=== PATIENT | male | born 1970 | race African-American/Black ===

== ENCOUNTER 2017-01-20 10:20 | Observation (INO) | payer OTHER ==
[2017-01-20] VITALS (33 sets, daily range): BP systolic 126–183; BP diastolic 61–109; PULSE 62–96; RESP 13–24; Ht 177.8 cm; Wt 72.2 kg
[~2017-01-20] VITALS: Ht 177.8 cm; Wt 72.2 kg
[2017-01-20] MEDS ORDERED: LOSA100T7 PO (11:15)
--- NOTE | 2017-01-20 11:42 | RADRPT ---
PROCEDURE: Chest Radiograph. CLINICAL INDICATION: Preop. Cystoscopy. TECHNIQUE: Single frontal chest radiograph. COMPARISON: None available FINDINGS: The patient is rotated. The cardiomediastinal silhouette is within normal limits. No infiltrate o r effusion is seen. The bones are intact. IMPRESSION: 1. No evidence of acute cardiopulmonary disease. RPTAT: AA .Sandip Spencer MD, MD Date Time Electronically viewed and signed by .Sandip Spencer MD, on 01/20/2017 11:41 .B/
--- NOTE | 2017-01-20 12:37 | HPN ---
Date/Time of Note Date/Time of Note DATE: 01/20/17 TIME: 12:37 Interval H&P Admission Note Pt. seen H&P reviewed: No system changes NICOLE VITALE MD January 20, 2017 12:37
[2017-01-20] MEDS ORDERED: MIDAZOLAM 1 MG/ML 2 ML INJ ONE (12:42)
[2017-01-20] MEDS ORDERED: HYDROmorphONE (0.2 MG/ML) 10ML SYG IV PRN ×2 (13:00)
[2017-01-20] MEDS ORDERED: FENTAnyl 50 MCG/ML VIAL IV PRN (13:00)
[2017-01-20] MEDS ORDERED: MEPERIDINE 25 MG INJ IV PRN (13:00)
[2017-01-20] MEDS ORDERED: DIPHENHYDRAMINE 50 MG INJ IV PRN (13:00)
[2017-01-20] MEDS ORDERED: ONDANSETRON 4 MG INJ IV PRN (13:00)
[2017-01-20] MEDS ORDERED: METHYLENE BLUE 1% 10 ML INJ ONE (13:09)
[2017-01-20] MEDS ORDERED: IOHEXOL 300MG/ML 30 ML BTL ONE (13:21)
[2017-01-20] MEDS ORDERED: IOHEXOL 300MG/ML 30 ML BTL INJ ONE (13:26)
[2017-01-20] MEDS ORDERED: ROCURONIUM 50 MG INJ ONE (14:22)
[2017-01-20] MEDS ORDERED: LIDOCAINE 2% (SDV) 5 ML INJ ONE (14:22)
[2017-01-20] MEDS ORDERED: PROPOFOL 20 ML ONE (14:22)
[2017-01-20] MEDS ORDERED: CEFAZOLIN 1 GM INJ ONE (14:25)
[2017-01-20] MEDS ORDERED: ONDANSETRON 4 MG INJ ONE (14:26)
[2017-01-20] MEDS ORDERED: CEFAZOLIN 2 GM/50 ML (PMX) 50 ML IVPB ONE (14:30)
[2017-01-20] MEDS ORDERED: HYDROCODONE/APAP (5/325) TAB PO PRN (15:00)
[2017-01-20] MEDS ORDERED: LABETALOL HCL 20MG INJ IV PRN (15:00)
--- NOTE | 2017-01-20 15:07 | OPR ---
DATE OF OPERATION: 01/20/2017 PREOPERATIVE DIAGNOSIS: Possible bladder tumor as suspected on ultrasound. POSTOPERATIVE DIAGNOSIS: Possible bladder tumor as suspected on ultrasound. Pending pathology repo rt. FINDINGS: Patient did have numerous bullous lesions in the bladder, mostly on the right side and ar ound the right ureteral orifice, also on the left side next to the left ureteral orifice and in the trigone and the bladder neck. OPERATION PERFORMED: Cystoscopy, transurethral resection of these tumors and also bilateral retrogr nunu pyelograms. TECHNIQUE: The patient was brought to the operating room. General anesthesia was given. The patie nt was given 2 grams of Ancef IV at the start of the procedure. The patient was then positioned in the lithotomy position. The genital area was prepped and draped in the usual sterile manner. A #22 Iranian cystoscope sheath was introduced under direct vision through the penile urethra all the way into the bladder and the above findings were noted; however, one cannot identify the right ureteral orifice, but after using the 70-degree lens, the orifice was covered by these bullous lesions and on ce I saw the orifice, then I did pass a Glidewire into it and got the x-ray and confirmed that is i n the ureter and the wire went up to the kidney. I did pass a 5-Iranian open-ended on it and did a r etrograde pyelogram to make sure that it is only 1 ureter on the right side that is not a duplicated system, and it showed normal collecting system. I left the open-ended there. Then I did cannulate the left ureteral orifice as well to be able to protect the orifices once I resected these tumors. On the left side, I put a sensor wire 0.035. On the right side, I put the 0.035 zip wire and then I removed the open-ended catheters. This way, I would be able to pass the resectoscope into the blad opal. Once I did that, then the patient was given 5 mL of methylene blue and I could see it coming f rom the left ureteral orifice. Then, I did introduce the 26-Iranian resectoscope into the bladder an d resected first the lesions that are away from the ureteral orifice, and then I did call the pathol zohreh. He came in and I just showed him the microscopic looking of these lesions, so he could look at it later on microscopically and have an idea to correlate it clinically. Any bullous lesion I co uld also electrocoagulate. Once I electrocoagulated, it is like a balloon, it pops up. Then I rese cted one deep into the wall of the bladder and sent it as base of bladder tumor. Once I resected th maura far away from the orifice, then I resected the areas close to the orifice, and care was taken al l the time to keep the orifices intact. In fact, the orifices were perfectly normal and intact at t he end. I removed the zip wire first on the right side. Then, I removed the sensor wire on the lef t and then I did resect more tissue toward the bladder neck and the trigone, as now the orifices wer e well visualized and away from the area to resect. All the bleeders were electrocoagulated. Good hemostasis was obtained. Then, I emptied the bladder and the patient was transferred to the recover y room in stable and satisfactory condition. Dictated By: NICOLE SMITH/RUFINO Conf#: [id number] DID#: [id number]
[2017-01-20] MEDS ORDERED: hydrALAzine 20 MG INJ ONE (19:47)
[2017-01-20] MEDS ORDERED: hydrALAzine 20 MG INJ IV PRN (20:00)
--- NOTE | 2017-01-20 20:04 | RADRPT ---
PROCEDURE: Intraoperative imaging of the abdomen and pelvis with fluoroscopy. CLINICAL INDICATION: Abdominal pain. Retrograde urogram. Intraoperative. TECHNIQUE: 11 images of the abdomen and pelvis were obtained in the operating room with an image i ntensifier. No radiologist was in attendance. 64 seconds of fluoroscopy time was used. COMPARISON: No prior study is available for comparison. FINDINGS: Initial images demonstrate contrast injection into the right ureter. There is a filling defect in t he proximal right ureter which may indicate a calculous, tumor, or air bubble. Subsequent images de monstrate contrast injection into the left ureter. There is a filling defect in the left ureteropel stefanie junction which may be a calculus, tumor, or air bubble. IMPRESSION: 1. Filling defects in the proximal right ureter and in the left ureteropelvic junction which may be a calculus, tumor, or air bubble. RPTAT: QQ .Toan Reyna MD, Date Time Electronically viewed and signed by .Toan Reyna MD, on 01/20/2017 20:04 .R/
[2017-01-20] MEDS: LOSARTAN 50 MG TAB NGT SCH (20:09)
[2017-01-20] MEDS ORDERED: ZOLPIDEM 5 MG TAB PO PRN (22:30)
[2017-01-20] MEDS: METOPROLOL 25 MG TAB PO SCH (22:57)
[2017-01-21] VITALS: BP 117/63; PULSE 72; RESP 18
[2017-01-21 04:30] VITALS: BP 122/67; PULSE 83; RESP 18
[2017-01-21 07:00] VITALS: BP 121/66; RESP 20
--- NOTE | 2017-01-21 07:43 | CONS ---
DATE OF ADMISSION: 01/20/2017 DATE OF CONSULTATION: 01/20/2017 REASON FOR CONSULTATION: Medical management. HISTORY OF PRESENT ILLNESS: The patient is a 46-year-old male with a history of hypertension, prob able depression and bladder tumor, who was admitted a urological procedure. The patient is now stat us post cystoscopy, transurethral resection of bladder tumors. He is currently admitted to the [facility] and is in stable condition. While the patient was in the [facility], he had elevated blood pressure for which he was given antihypertensive, which improved his blood pressure from around 180/100 to 140/60 s. Except for minimal discomfort in the suprapubic area and the genital area, he does not have any complaint. He denied any chest pain, shortness of breath, fever, chills, nausea, or vomiting. His Jaimes is currently with bloody output. REVIEW OF SYSTEMS: A 12-point review of systems was performed, negative except as mentioned in the HPI. PAST MEDICAL HISTORY: As per HPI. SOCIAL HISTORY: Denied a history tobacco, alcohol or illicit drug use. ALLERGIES: NO KNOWN DRUG ALLERGIES. HOME MEDICATIONS: Losartan. PHYSICAL EXAMINATION: VITAL SIGNS: Blood pressure 132/67, heart rate 74, respiratory rate 18, temperature 97.9, oxygen sa turation 100% on room air. GENERAL: No acute distress. Answering questions appropriately, able to speak in full sentences. HEENT: No obvious head deformity. Pupils are reactive to light. Extraocular muscles intact. CARDIOVASCULAR: Regular rate and rhythm with no extra sounds. LUNGS: Clear. ABDOMEN: Soft. Minimal discomfort to deep palpation to the suprapubic area. Otherwise, no guardin g or rebound tenderness, no rigidity. There are positive bowel sounds. EXTREMITIES: No edema. GENITOURINARY: There is a Jaimes catheter in place with bloody/serosanguineous output. IMPRESSION: 1. Bladder tumor, status post cystoscopy and transurethral tumor resection. 2. Hypertensive urgency, blood pressure better controlled now. PLAN: We will continue pain management. He will be continued with his home antihypertensive with r educed dose, but will add beta katerina for better blood pressure control given he was also initially tachycardic. Surgical management per urology. We will check basic labs in the morning. Further workup and management per clinical course. Dictated By: NAMRATA LIN/RUFINO Conf#: [id number] [facility]#: [id number]
[2017-01-21 08:57] LABS: ADD SCAN DIFF NO
[2017-01-21] MEDS: METOPROLOL 25 MG TAB PO SCH ×2 (09:00→21:15)
[2017-01-21] MEDS: LOSARTAN 50 MG TAB NGT SCH (09:00)
--- NOTE | 2017-01-21 09:02 | PDOCDIS ---
Discharge Instructions DIAGNOSIS Discharge Diagnosis: pending pathology report CONDITION Patient Condition: Good HOME CARE INSTRUCTIONS: Diet Instructions: Regular ACTIVITY: Activity Restrictions: Slowly Increase Activity Rest between Activity Avoid heavy lifting No Sexual Activity Do not Drive FOLLOW UP/APPOINTMENTS Appointments follow up with Dr Diallo next or Monday call [phone] on monday for appointment NICOLE DIALLO MD January 21, 2017 09:02
[2017-01-21 09:03] LABS: ABNORMAL IP MESSAGE 1; BASOPHILS % 0.2 % (0.0-2.0); EOSINOPHILS % 0.1 % (0.0-7.0); HEMATOCRIT 42.5 % (42.0-52.0); LYMPHOCYTES # 1.7 10^3/ul (0.8-2.9); LYMPHOCYTES % 10.7 % (15.0-51.0); MEAN CORPUSCULAR HEMOGLOBIN 29.1 pg (29.0-33.0); MEAN CORPUSCULAR HGB CONC 32.9 g/dl (32.0-37.0); MEAN CORPUSCULAR VOLUME 88.4 fl (82.0-101.0); MEAN PLATELET VOLUME 11.7 fl (7.4-10.4); MONOCYTE # 1.6 10^3/ul (0.3-0.9); MONOCYTES % 10.2 % (0.0-11.0); NEUTROPHIL # 12.6 10^3/ul (1.6-7.5); NEUTROPHILS % 78.5 % (39.0-77.0); PLATELET COUNT 202 10^3/UL (140-415); RED BLOOD COUNT 4.81 10^6/ul (4.70-6.10); RED CELL DISTRIBUTION WIDTH 13.8 % (11.5-14.5)
[2017-01-21 09:15] LABS: ALBUMIN 3.5 g/dl (3.3-4.9)
[2017-01-21 09:16] LABS: POTASSIUM 3.3 mmol/L (3.5-5.1)
[2017-01-21 09:17] LABS: CREATININE 1.17 mg/dl (0.61-1.24)
[2017-01-21 09:18] LABS: BILIRUBIN,INDIRECT 0.9 mg/dl (0-1.1); BILIRUBIN,TOTAL 0.9 mg/dl (0.2-1.3); PHOSPHORUS 3.7 mg/dl (2.5-4.9); TOTAL PROTEIN 6.6 g/dl (6.1-8.1)
[2017-01-21 09:19] LABS: CALCIUM 8.7 mg/dl (8.4-10.2); MAGNESIUM 2.1 mg/dl (1.7-2.5)
[2017-01-21 09:25] LABS: ALBUMIN/GLOBULIN RATIO 1.12
--- NOTE | 2017-01-21 11:34 | PN ---
Date/Time of Note Date/Time of Note DATE: 01/21/17 TIME: 11:32 Assessment/Plan VTE Prophylaxis VTE Prophylaxis Intervention: ambulation Lines/Catheters IV Catheter Type (from Nrs): Peripheral IV Urinary Cath still in place: Yes Assessment/Plan Chief Complaint/Hosp Course Assessment and plan 1. Bladder tumor status post cystoscopy and transurethral tumor resection. Continue with analgesics. urologist following. Await for ability to void prior to discharge. 2. Hypertensive urgency. Improved at this time. Continue antihypertensives. Will adjust as needed. Disposition and plan: Does overall appear improved. Continue with analgesics. Await for ability to void prior to discharge. DC planning Discussed plan of care with Dr. Pollock Problems: Subjective 24 Hr Interval Summary Free Text/Dictation Denies any pain at this time. Still reports he has not voided yet Exam/Review of Systems Vital Signs Vitals Vital Signs Date Time Temp Pulse Resp B/P Pulse Ox O2 Delivery O2 Flow Rate FiO2 01/21/17 07:00 100.0 73 20 121/66 99 01/21/17 04:30 Room Air 01/20/17 14:41 8.0 Intake and Output 01/20/17 01/20/17 01/21/17 15:00 23:00 07:00 Intake Total 700 ml 118 ml 600 ml Output Total 10 ml 827 ml 1600 ml Balance 690 ml -709 ml -1000 ml Exam Constitutional: alert, oriented Psych: nl mood/affect Head: normocephalic Neck: supple, No jvd Respiratory: clear to auscultation, normal air movement Cardiovascular: regular rate and rhythm Gastrointestinal: non-tender, soft Musculoskeletal: nl extremities to inspection Neurological: SHIPWRIGHT APPRENTICE II-XII intact, nl mental status, nl speech Results Result Diagram: 01/21/17 0832 01/21/17 0832 Results 24 hrs Laboratory Tests Test 01/21/17 08:32 White Blood Count 16.0 H Red Blood Count 4.81 Hemoglobin 14.0 Hematocrit 42.5 Mean Corpuscular Volume 88.4 Mean Corpuscular Hemoglobin 29.1 Mean Corpuscular Hemoglobin Concent 32.9 Red Cell Distribution Width 13.8 Platelet Count 202 Mean Platelet Volume 11.7 H Neutrophils % 78.5 H Lymphocytes % 10.7 L Monocytes % 10.2 Eosinophils % 0.1 Basophils % 0.2 Nucleated Red Blood Cells % 0.0 Neutrophils # 12.6 H Lymphocytes # 1.7 Monocytes # 1.6 H Eosinophils # 0.0 Basophils # 0.0 Nucleated Red Blood Cells # 0.0 Sodium Level 142 Potassium Level 3.3 L Chloride Level 104 Carbon Dioxide Level 27 Anion Gap 14 Blood Urea Nitrogen 13 Creatinine 1.17 Glucose Level 88 Calcium Level 8.7 Phosphorus Level 3.7 Magnesium Level 2.1 Total Bilirubin 0.9 Direct Bilirubin 0.00 Indirect Bilirubin 0.9 Aspartate Amino Transf (AST/SGOT) 32 Alanine Aminotransferase (ALT/SGPT) 36 Alkaline Phosphatase 50 Total Protein 6.6 Albumin 3.5 Globulin 3.10 Albumin/Globulin Ratio 1.12 Medications Medications Current Medications Acetaminophen/ Hydrocodone Bitart ([place] (5/325)) 1 tab Q4H PRN PO PAIN Last administered on 01/20/17 21:14; Admin Dose 1 TAB; Start 01/20/17 at 15:00 Hydralazine HCl (Apresoline) 10 mg Q4H PRN IV BLOOD PRESSURE SUPPORT Last administered on 01/20/17 20:08; Admin Dose 10 MG; Start 01/20/17 at 20:00 Losartan Potassium (Cozaar) 50 mg DAILY NGT Last administered on 01/20/17 20: 09; Admin Dose 50 MG; Start 01/20/17 at 19:54 Metoprolol Tartrate (Lopressor) 25 mg BID PO Last administered on 01/20/17 22: 57; Admin Dose 25 MG; Start 01/20/17 at 22:30 Zolpidem Tartrate (Ambien) 5 mg HS PRN PO INSOMNIA; Start 01/20/17 at 22:30 BUCKY KIRKLAND January 21, 2017 11:34
--- NOTE | 2017-01-21 12:01 | DS ---
DATE OF ADMISSION: 01/20/2017 DATE OF DISCHARGE: 01/21/2017 ADMITTING DIAGNOSIS: Bladder tumor. The patient is status post transurethral resection of bladder tumor. DISCHARGE DIAGNOSIS: Bladder tumor. The patient is status post transurethral resection of bladder tumor, pending pathology report. HISTORY OF PRESENT ILLNESS AND HOSPITAL COURSE: This is a 46-year-old -Greek male who dur ing examination for lower urinary tract symptoms was found to have a defect into the bladder on ultr asound, suspicious for tumor. Therefore, he was admitted yesterday and underwent transurethral rese ction of these tumors. These tumors did not appear to be the papillary type of tumor, but they were bullous and nodularities inside the bladder. They most likely being inflammatory, but we have to w ait for the pathology report. All these tumors were resected and they were also covering around the right ureteral orifice and very close to the left ureteral orifice. The past medical history of the patient includes a history of hypertension for which he has been on medications. In the postoperative period, the patient's blood pressure was very high and I had to ask the hospita list to help managing his blood pressure. Also, the patient was voiding a small amount each time an d the urine was bloody, even though at the end of the surgical procedure all the hemostasis was very good and there was no active bleeders. Because of the high blood pressure and the fact that he had not been able to urinate, so I instructed the nursing to insert the Jaimes catheter which they did a nd they connected to a drainage bag. This morning, the patient is stable. The catheter is draining clear yellow urine and the blood pressure is much better and controlled. The temperature is 98.9. The blood pressure is 121/66. He does have a low-grade temperature of 100, but we will discharge h im on antibiotic and we will discontinue the Jaimes catheter and make sure that he does urinate prior to discharge. He will see me in the office in about 4 to 5 days. By then, we should hopefully hav e the pathology report. The patient is instructed not to do any strenuous activity, not to drive, n ot to push. I prescribed him Bactrim DS 1 tablet every 12 hours for 10 days, and [place] 5/325 (30 ta blets) 1 tablet every 6 hours for pain as needed. The patient is to call me for any problem. He is to drink a lot of water to keep his urine clear and he is to continue his blood pressure medication s. Dictated By: NICOLE SMITH/RUFINO Conf#: [id number] DID#: [id number]
[2017-01-21 20:35] VITALS: BP 137/63; RESP 18
[2017-01-22 07:44] VITALS: BP 157/85; RESP 18
[2017-01-22] MEDS: LOSARTAN 50 MG TAB NGT SCH (09:01)
[2017-01-22] MEDS: METOPROLOL 25 MG TAB PO SCH (09:01)
--- NOTE | 2017-01-22 14:14 | PN ---
DATE: 01/22/2017 SUBJECTIVE: Urinary retention. The patient is status post transurethral resection of bladder tumor s. The patient has had a Jaimes catheter that was removed this morning, and after the catheter was r emoved, he is still unable to urinate. The same thing happened yesterday where he had a catheter an d the urine was clear. We remove the catheter, and he was not able to urinate, and we were going to send him home with the catheter and the leg bag. The patient felt very uncomfortable, would not wa nt to go home, and today I found out that he lives with many people in his family, and they are all sick, and he sleeps on the floor as they do not have a bed for him. Therefore he is very hesitant t o go home. I did insert a catheter for him, 16-Turkish. The urine is clear. We connected to a leg bag, showed him how to empty the bag. He does not have to be lying down all the time, he just lies down when he wants to sleep, and he could get up and walk around, drink a lot of water, and empty th e bag whenever it is full. He should come to my office on Monday or Monday to have the catheter removed and hopefully by then he should be able to urinate. The patient did understand all of that , and his urine culture is negative, and the pathology report still pending. Dictated By: NICOLE SMITH/RUFINO Conf#: [id number] DID#: [id number]
--- NOTE | 2017-01-22 14:30 | PN ---
Date/Time of Note Date/Time of Note DATE: 01/22/17 TIME: 14:01 Assessment/Plan VTE Prophylaxis VTE Prophylaxis Intervention: ambulation Lines/Catheters IV [facility] Sal[place] Lock Urinary Cath still in place: Yes Assessment/Plan Chief Complaint/Hosp Course Assessment and plan 1. Bladder tumor status post cystoscopy and transurethral tumor resection. Continue with analgesics. urologist following. catheter in place 2. Hypertensive urgency. Improved at this time. Continue antihypertensives. Will adjust as needed. Disposition and plan: Does overall appear improved. Continue with analgesics. DC planning Discussed plan of care with Dr. Pollock Problems: Subjective 24 Hr Interval Summary Free Text/Dictation resting at this time. no s/s of distress. was reported with urinary retention last night Exam/Review of Systems Vital Signs Vitals Vital Signs Date Time Temp Pulse Resp B/P Pulse Ox O2 Delivery O2 Flow Rate FiO2 01/22/17 07:44 98.5 91 18 157/85 98 01/21/17 04:30 Room Air 01/20/17 14:41 8.0 Intake and Output 01/21/17 01/21/17 01/22/17 15:00 23:00 07:00 Intake Total 600 ml 700 ml Output Total 1200 ml 800 ml 800 ml Balance -1200 ml -200 ml -100 ml Exam Constitutional: alert, oriented Psych: nl mood/affect Head: normocephalic Eyes: nl conjunctiva Neck: supple Respiratory: clear to auscultation, normal air movement Cardiovascular: regular rate and rhythm Gastrointestinal: nl liver, spleen, soft Genitourinary - Male: other (lion bag in place ) Musculoskeletal: nl extremities to inspection, nl gait and stance Extremities: normal pulses Neurological: ACADEMIC INTERN II-XII intact, nl mental status, nl speech Skin: nl turgor Results Result Diagram: 01/21/17 0832 01/21/17 0832 Medications Medications Current Medications Acetaminophen/ Hydrocodone Bitart ([place] (5/325)) 1 tab Q4H PRN PO PAIN Last administered on 01/20/17 21:14; Admin Dose 1 TAB; Start 01/20/17 at 15:00 Hydralazine HCl (Apresoline) 10 mg Q4H PRN IV BLOOD PRESSURE SUPPORT Last administered on 01/20/17 20:08; Admin Dose 10 MG; Start 01/20/17 at 20:00 Losartan Potassium (Cozaar) 50 mg DAILY NGT Last administered on 01/22/17 09: 01; Admin Dose 50 MG; Start 01/20/17 at 19:54 Metoprolol Tartrate (Lopressor) 25 mg BID PO Last administered on 01/22/17 09: 01; Admin Dose 25 MG; Start 01/20/17 at 22:30 Zolpidem Tartrate (Ambien) 5 mg HS PRN PO INSOMNIA; Start 01/20/17 at 22:30 BUCKY KIRKLAND January 22, 2017 14:30
== END 2017-01-22 17:20 | disposition home or self-care (01) ==
LOC: SDS 10:20 → MS1 19:08
PROVIDERS: ADMIT Urology; ATTEND Urology
DX: D49.4 Neoplasm of unspecified behavior of bladder (principal); N30.80 Other cystitis without hematuria; I10 Essential (primary) hypertension
CPT/HCPCS: 52235; 71010; 74420; 80053; 83735; 84100; 85025; 87086; 88305; J0360; J0690; J2175; J2250; J2405; J3010; Q9967; Z7500; Z7512; Z7610; G0378